=== PATIENT | female | born 1975 | race Two or more races ===

== ENCOUNTER 2017-04-27 09:28 | Outpatient (CLI) | payer OTHER ==
[~2017-04-27 09:28] MED LIST: NUVARING V1 VAG.RING; TOBREX5 ML OP
== END 2017-04-27 09:44 | disposition home or self-care (01) ==
LOC: SONOGRAMA 09:28
DX: D24.1 Benign neoplasm of right breast (principal); D24.2 Benign neoplasm of left breast

== ENCOUNTER 2017-05-09 14:20 | Emergency (ER) | payer OTHER ==
[~2017-05-09] VITALS: Ht 160 cm; Wt 52.6 kg
== END 2017-05-10 08:00 | disposition home or self-care (01) ==
LOC: ER 14:20 → SURG 05-10 10:22 → ER 05-10 10:22 → SURH 05-10 10:22 → SURG 05-10 19:03
DX: N20.2 Calculus of kidney with calculus of ureter (principal)

== ENCOUNTER 2017-05-28 14:35 | Outpatient (CLI) | payer OTHER | END 2017-05-28 15:25 | disposition home or self-care (01) | LOC: SONOGRAMA 14:35 | DX: N20.0 Calculus of kidney (principal); R31.9 Hematuria, unspecified ==

== ENCOUNTER 2017-08-21 10:57 | Outpatient (CLI) | payer OTHER | END 2017-08-21 11:23 | disposition home or self-care (01) | LOC: SONOGRAMA 10:57 | DX: R10.2 Pelvic and perineal pain (principal); D25.1 Intramural leiomyoma of uterus ==

== ENCOUNTER 2018-12-14 12:21 | Outpatient (CLI) | payer OTHER | END 2018-12-14 12:34 | disposition home or self-care (01) | LOC: MAMO-SONO 12:21 | DX: Z12.31 Encounter for screening mammogram for malignant neoplasm of breast (principal); Z87.898 Personal history of other specified conditions; N60.01 Solitary cyst of right breast; N60.02 Solitary cyst of left breast; R10.2 Pelvic and perineal pain; D25.1 Intramural leiomyoma of uterus ==

== ENCOUNTER 2021-05-09 12:04 | Outpatient (CLI) | payer OTHER | END 2021-05-09 12:37 | disposition home or self-care (01) | LOC: RAD 12:04 | PROVIDERS: ATTEND Orthopaedic Surgery | DX: M25.561 Pain in right knee (principal); M25.562 Pain in left knee | CPT/HCPCS: 73718 ==

== ENCOUNTER 2024-11-01 09:44 | Outpatient (CLI) | payer OTHER | END 2024-11-01 09:48 | disposition home or self-care (01) | LOC: MAMO-SONO 09:44 | PROVIDERS: ATTEND Obstetrics & Gynecology | DX: N60.11 Diffuse cystic mastopathy of right breast (principal); N60.12 Diffuse cystic mastopathy of left breast; R10.2 Pelvic and perineal pain ==